=== PATIENT | female | born 1990 | race Caucasian/White ===

== ENCOUNTER 2022-07-30 18:32 | Outpatient (CLI) | payer OTHER | END 2022-07-30 18:33 | disposition critical access hospital (66) | LOC: EMS 18:32 | DX: R41.0 Disorientation, unspecified (principal); R45.1 Restlessness and agitation; R61 Generalized hyperhidrosis; V80.010A Animal-rider injured by fall from or being thrown from horse in noncollision accident, initial encounter; Y93.52 Activity, horseback riding; Y92.008 Other place in unspecified non-institutional (private) residence as the place of occurrence of the external cause; F10.90 Alcohol use, unspecified, uncomplicated | CPT/HCPCS: A0425; A0429 ==